=== PATIENT | male | born 1965 | race Caucasian/White ===

== ENCOUNTER 2018-06-15 13:34 | Emergency (ER) | payer OTHER ==
[~2018-06-15] VITALS: Ht 170.2 cm; Wt 86.2 kg
[2018-06-15 13:38] VITALS: Ht 170.2 cm; Wt 86.2 kg
[2018-06-15 16:19] VITALS: BP 125/67
== END 2018-06-15 16:30 | disposition home or self-care (01) ==
LOC: ED 13:34
PROC: 3E0234Z Introduction of Serum, Toxoid and Vaccine into Muscle, Percutaneous Approach (ICD-10-PCS; principal; 2018-06-15)
DX: L76.21 Postprocedural hemorrhage of skin and subcutaneous tissue following a dermatologic procedure (principal)
CPT/HCPCS: 90715